=== PATIENT | male | born 2000 | race Caucasian/White ===

== ENCOUNTER → 2021-11-27 17:04 | Outpatient (CLI) | payer OTHER, SELFPAY | PROVIDERS: Visit Provider Nurse Practitioner | DX: Z20.822 Contact with and (suspected) exposure to COVID-19 (principal) | CPT/HCPCS: C9803; U0003; U0005 ==

== ENCOUNTER 2022-05-27 14:19 | Emergency (ER) | payer OTHER, SELFPAY ==
--- NOTE | 2022-05-27 14:16 | ECG_ITS ---
APPROVED REPORT Exam: Resting ECG HR:110 bpm ECG Measurements Heart Rate 110 AXES MN 154 P 64 QRSd 91 QRS 58 QT 305 T 24 QTc 370 Conclusion SINUS TACHYCARDIA POSSIBLE LEFT ATRIAL ENLARGEMENT [-0.1mV P-WAVE IN V1/V2] NONSPECIFIC T-WAVE ABNORMALITY ABNORMAL RHYTHM ECG UNCONFIRMED REPORT Electronically signed by : Kenji Olvera MD 05/27/2022 21:00:32
[2022-05-27 14:19] VITALS: BP 131/85; PULSE 99; RESP 25; O2SAT 100; BMI 34.8
[2022-05-27 14:31] VITALS: BP 136/88; PULSE 87; RESP 23; O2SAT 98
--- NOTE | 2022-05-27 14:31 | XR_ITS ---
FINAL REPORT CLINICAL HISTORY: cough FINDINGS: SINGLE-VIEW CHEST The heart size is normal. The mediastinum is normal. The lungs are clear. There is no pneumothorax. IMPRESSION: No acute cardiopulmonary process. Reviewed, Interpreted and Dictated by Des Cheema III, MD Transcribed by Candace Maldonado Authenticated and [facility]
[2022-05-27 14:46] LABS: Chloride 105 mmol/L (98-107); Potassium 3.5 mmoL/L (3.5-5.1); Sodium 139 mmol/L (136-145)
[2022-05-27 14:49] LABS: Alanine Aminotransferase 29 U/L (12-78); Albumin Level 5.1 g/dl (3.5-5.0); Albumin/Globulin Ratio 1.6 (1.1-1.8); Alkaline Phosphatase 75 U/L (38-126); Anion Gap 11.5 mEq/L (5-15); Aspartate Amino Transferase 41 U/L (17-59); Bilirubin,Total 1.1 mg/dl (0.2-1.3); Blood Urea Nitrogen 14 mg/dl (9-20); Calcium 10.1 mg/dl (8.4-10.2); Carbon Dioxide 26 mmol/L (22.0-30.0); Estimated Glomerular Filt Rate 93 ml/min (>60); GFR (African American) 112 ML/MIN (>60); Globulin 3.1 g/dL (1.3-3.2); Glucose 134 mg/dl (74-100); Total Protein,Serum 8.2 g/dl (6.3-8.2)
[2022-05-27 14:51] LABS: Basophils % 0.2 % (0.1-2.0); Eosinophils % 0.2 % (0.1-12.0); Hematocrit 46.5 % (42.0-52.0); Hemoglobin 15.9 g/dL (14.1-18.0); Lymphocytes # 2.1 K/mm3 (0.7-4.5); Lymphocytes % 20.9 % (10-50); Mean Corpuscular HGB Conc 34.3 g/dL (31.8-35.4); Mean Corpuscular Hemoglobin 30.3 pg (27.0-31.2); Mean Corpuscular Volume 88.4 fl (80-94); Mean Platelet Volume 7.9 fl (7.4-10.4); Monocytes # 0.7 K/mm3 (0.1-1.0); Monocytes % 7.1 % (1.7-9.3); Neutrophils # 7.1 K/mm3 (1.8-7.8); Neutrophils % 71.6 % (37.0-80.0); Platelet Count 208 K/mm3 (142-424); Red Blood Count 5.26 M/mm3 (4.60-6.20); Red Cell Distribution Width 13.3 % (11.5-17.5); White Blood Count 9.9 K/mm3 (4.8-10.8)
[2022-05-27 15:01] VITALS: BP 131/85; PULSE 87; O2SAT 98
[2022-05-27 15:10] LABS: Troponin I < 0.01 ng/ml (0.00-0.034)
--- NOTE | 2022-05-27 15:11 | PC.NURSE ---
PT MEDICATED AT THIS TIME. FAMILY AT BEDSIDE. OFFERED BLANKET, PT DECLINED. NO NEEDS AT THIS TIME
[2022-05-27 15:31] VITALS: BP 133/81; PULSE 89; RESP 18; O2SAT 97
--- NOTE | 2022-05-27 15:46 | HMH.EDCP ---
ED Disposition Clinical Impression: Anxiety Chest pain Qualifiers: Chest pain type: unspecified Qualified Code(s): R07.9 - Chest pain, unspecified Disposition: Home, Self-Care Condition on Discharge: Good Instructions: DI for Atypical Chest Pain Prescriptions: hydrOXYzine HCL [Hydroxyzine HCl] 10 mg PO BID #10 tab Transmission Status: Pending to [id number] Referrals: Provider,MD Zhao [Primary Care Provider] - Rene Astudillo MD [Staff Physician] - - Critical Care Critical Care Time: No Attestation: On 05/27/22, the high probability of a clinically significant, sudden or life threatening deterioration of the following system(s) required my full and direct attention, intervention and personal management. The time I documented below is in addition to time spent performing reported procedures but includes the following listed in this critical care notation. Medical Decision Making - Medical Records Medical records reviewed: Yes: I reviewed the patient's medical records. - Bennie Inquiry Pt receiving controlled substance: No Vital Signs: 05/27/22 14:19 05/27/22 14:31 05/27/22 15:01 Pulse Rate 87 87 Pulse Rate [Left Radial] 99 H Respiratory Rate 25 H 23 Blood Pressure 136/88 131/85 Blood Pressure [Right Arm] 131/85 Blood Pressure Mean 104 97 Blood Pressure Mean [Right Arm] 100 Blood Pressure Source [Right Arm] Automatic Cuff Blood Pressure Position [Right Arm] Sitting 02 Sat by Pulse Oximetry 100 98 98 Oxygen Delivery Method Room Air - Lab Data Lab Results 05/27/22 14:21: WBC 9.9, RBC 5.26, Hgb 15.9, Hct 46.5, MCV 88.4, MCH 30.3, MCHC 34.3, RDW 13.3, Plt Count 208, MPV 7.9, Neut % (Auto) 71.6, Lymph % (Auto) 20.9, [place] % (Auto) 7.1, Eos % (Auto) 0.2, Baso % (Auto) 0.2, Neut # (Auto) 7.1, Lymph # (Auto) 2.1, [place] # (Auto) 0.7, Eos # (Auto) 0.0, Baso # (Auto) 0.0 05/27/22 14:21: Sodium 139, Potassium 3.5, Chloride 105, Carbon Dioxide 26, Anion Gap 11.5, BUN 14, Creatinine 1.00, Estimated GFR 93, Est GFR ( Amer) 112, Glucose 134 H, Calcium 10.1, Total Bilirubin 1.1, AST 41, ALT 29, Alkaline Phosphatase 75, Troponin I < 0.01, Total Protein 8.2, Albumin 5.1 H, Globulin 3.1, Albumin/Globulin Ratio 1.6 Result diagrams: 05/27/22 14:21 05/27/22 14:21 Orders (Tests/Meds): ED MEDICATIONS Generic Name Dose Route Start Last Admin Trade Name Freq PRN Reason Stop Dose Admin Sodium Chloride 10 ml 05/27/22 14:31 Sodium Chloride 0.9% 10ml Vial IV 06/26/22 14:30 NEEDED PRN to Dilute Lorazepam inj Discontinued Medications Generic Name Dose Route Start Last Admin Trade Name Freq PRN Reason Stop Dose Admin Lorazepam 1 mg 05/27/22 14:31 05/27/22 15:10 Lorazepam 2mg/Ml Vial IV 05/27/22 14:32 1 mg ONCE ONE Administration ORDERS Category Date Time Status Troponin I Q3H Lab 05/27/22 17:45 Ordered Troponin I Q3H Lab 05/27/22 20:45 Ordered - Radiology Data #1 Image(s): Chest Image Reviewed: Yes I reviewed the patient's radiology results, Yes I reviewed the patient's radiology image, Yes I have reviewed radiologist's interpretation Preliminary Findings: Normal/NAD - ECG Data Tracing #1 I reviewed this ECG and interpreted as documented below: Tachycardic rate of 110 bpm, CT interval 154 ms, normal QTC. Sinus tachycardia with nonspecific changes. ECG initial impression date: 05/27/22 ECG initial impression time: 14:16 - Reevaluation(s) Time: 15:50 Reevaluation #1: On reevaluation, patient is feeling better. Is much more calm. Troponin negative. Patient is to follow-up with PCP in 48 hours. Given strict return precautions. Verbalized understanding. - MALVIN Score for Non-Stemi Age of Patient: <30 years old Heart Rate: 90-109 bpm Systolic Blood Pressure: 120-139 mmhg Serum Creatinine: <0.40 mg/dl CHF [place] Class: I-No CHF Other Risk Factors: None Non-Stemi Risk Score: 50 Risk Stratification
--- NOTE | 2022-05-27 15:51 | PC.NURSE ---
pt given ice water; [facility] OJEDA MD
[2022-05-27 16:00] VITALS: BP 133/81; PULSE 93; RESP 18; TEMP 36.7; O2SAT 98
== END 2022-05-27 16:00 | disposition home or self-care (01) ==
PROVIDERS: Emergency Provider Emergency Medicine
DX: F41.9 Anxiety disorder, unspecified (principal); R07.9 Chest pain, unspecified; Z88.1 Allergy status to other antibiotic agents
CPT/HCPCS: 71045; 80053; 84484; 85025; 93005; 96374; 99284

== ENCOUNTER 2022-12-23 04:36 | Emergency (ER) | payer OTHER, BC, SELFPAY ==
[2022-12-23 04:37] VITALS: BP 130/87; PULSE 88; RESP 18; TEMP 36.4; O2SAT 97; BMI 35.9
[2022-12-23 04:42] VITALS: BP 130/87; PULSE 87; O2SAT 97
[2022-12-23 05:00] VITALS: BP 128/69; PULSE 71; O2SAT 98
[2022-12-23 05:35] LABS: Coronavirus 19, PCR Not Detected (NotDetected); Influenza A, PCR Not Detected (NotDetected); Influenza B, PCR Not Detected (NotDetected)
--- NOTE | 2022-12-23 06:02 | PC.NURSE ---
rounded on patient at this time and updated on POC. PT advised medication helped the nausea. PT had no other needs at this time.
--- NOTE | 2022-12-23 06:07 | HMH.EDEAR ---
Discharge Plan Disposition Patient Disposition: Home, Self-Care Prescriptions Prescriptions: New azithromycin [azithromycin] 250 mg tablet 250 mg PO DIRECTED Qty: 6 0RF Rx Instructions: Take two (2) tablets on day #1, then one (1) tablet day #2 thru #5 prednisone [prednisone] 20 mg tablet 20 mg PO BID Qty: 10 0RF No Action paroxetine HCl [Paxil] 20 mg tablet 20 mg PO DAILY Qty: 90 3RF hydroxyzine HCl 10 MG tablet 10 mg PO BID Qty: 10 0RF Referrals Follow up/Referrals: Provider,MD Zhao [Primary Care Provider] - See instructions Doug Bolivar MD [Physician] - See instructions Troy Foley MD [Physician] - See instructions Jacinto Christiansen III, MD [Staff Physician] - See instructions Clinical Impressions Clinical Impression: Otitis media Instructions Patient Instructions: DI for Middle Ear Infection-Adult Discharge ED Provider: Jalen (ED)Quinn Ear HPI General Chief complaint: Ear Stated complaint: ear pain, dizziness Time Seen by Provider: 12/23/22 05:50 Mode of Arrival: Ambulatory Source of Information: Patient and Medical Record Limitations: No Limitations Description of Symptoms (Recalled from ER Triage Doc. by RN): pt c/o ear pain, cough and fever 3 days. pt stated that the ear pain has been accompanied by dizzy feeling snd that today when he woke up he was so dizzy he was disoriented. History of Present Illness HPI Narrative: pt with ear pain and cough with reported fever over the last few days - has dizzyness today - no trauma - no rash Complaint: ear pain and decreased hearing Location: left ear Duration: constant Severity: moderate Context: recent illness Discharge from ear: no Associated symptoms ear: fever and decreased hearing Treatment prior to arrival: none Related Data Previous Rx's Medication Instructions Recorded hydroxyzine HCl 10 mg tablet 10 mg PO BID #10 tabs 05/27/22 paroxetine HCl 20 mg tablet (Paxil) 20 mg PO DAILY #90 tabs 06/18/22 azithromycin 250 mg tablet 250 mg PO DIRECTED #6 tabs 12/23/22 prednisone 20 mg tablet 20 mg PO BID #10 tabs 12/23/22 Allergies Allergy/AdvReac Type Severity Reaction Status Date / Time amoxicillin Allergy Verified 06/18/22 14:29 [facility] Disclaimer: The information contained in this section may have been updated after the patient was seen, as this information can be updated by other users. Social History Smoking Status: Unknown if ever smoked alcohol intake: never current occupational status: employed Travel in the last 8 weeks: None ROS Obtained: Yes All systems reviewed & no additional complaints except as documented Physical Exam General General appearance: alert Head Head exam: normocephalic Eye Eye exam: Present PERRL and EOMI; Absent nystagmus Expanded ENT Exam TM/Canal exam: Left TM: effusion and Right TM: erythema and perforation Neck Neck exam: Present full ROM Respiratory Respiratory exam: Absent respiratory distress Cardiovascular Cardiovascular exam: Present regular rate Abdominal Exam Abdominal exam: Present soft Extremities Exam Extremities exam: Present full ROM Neurological Exam Neurological exam: Present alert, oriented X3 and CN II-XII intact; Absent motor sensory deficit Psychiatric Psychiatric exam: Present normal affect Skin Skin exam: Absent rash Medical Decision Making Medical Records Medical records reviewed: Yes I reviewed the patient's medical records. Bennie Inquiry Pt receiving controlled substance: No Vital Signs: 12/23/22 04:37 12/23/22 04:42 12/23/22 05:00 Temperature 97.5 F L Temperature Source Oral Pulse Rate 87 71 Pulse Rate [Left] 88 Respiratory Rate 18 Blood Pressure 130/87 128/69 Blood Pressure [Right Arm] 130/87 Blood Pressure Mean [Right Arm] 101 02 Sat by Pulse Oximetry 97 97 98 Oxygen Delivery Method Room Air Lab Data Lab results reviewed: Yes I reviewed the patient's lab result
[2022-12-23 06:23] VITALS: BP 128/69; PULSE 67; RESP 22; TEMP 36.4; O2SAT 97
== END 2022-12-23 06:33 | disposition home or self-care (01) ==
PROVIDERS: Emergency Provider Emergency Medicine
DX: H66.93 Otitis media, unspecified, bilateral (principal); Z20.822 Contact with and (suspected) exposure to COVID-19
CPT/HCPCS: 99283; 99284; C9803; U0003; U0005